=== PATIENT | female | born 1960 | race Caucasian/White ===

== ENCOUNTER → 2020-05-14 10:22 | Outpatient (CLI) | payer BC, SELFPAY ==
--- NOTE | ~2020-05-14 | MM_ITS ---
EXAMINATION: MM screening [facility] BI w [facility] HISTORY: Screening mammogram TECHNIQUE: Craniocaudal and mediolateral oblique 3-D tomosynthesis images were obtained and synthetic 2-D images were generated. CAD analysis was submitted and interpreted. COMPARISON: 12/13/2018, 01/10/2017, 11/25/2015 BREAST PARENCHYMAL COMPOSITION: There are scattered areas of fibroglandular density. FINDINGS: There is no evidence of suspicious mass, calcification, or architectural distortion to sugg est malignancy in either breast. There has been no suspicious interval change. IMPRESSION: 1. No mammographic evidence of malignancy. 2. Recommend routine screening mammography in one year. BI-RADS Category 1: Negative Reviewed, dictated and finalized at location A. [place]
== END ==
PROVIDERS: PCP Internal Medicine; Visit Provider Internal Medicine
DX: Z12.31 Encounter for screening mammogram for malignant neoplasm of breast (principal)
CPT/HCPCS: 77063; 77067

== ENCOUNTER → 2020-10-27 10:01 | Outpatient (CLI) | payer BC, SELFPAY ==
--- NOTE | ~2020-10-27 | XR_ITS ---
EXAMINATION: XR cervical spine min 6V EXAM DATE: 10/27/2020 10:27 INDICATION: Cervicalgia. Neck pain, no known recent injury, surgery or fracture. TECHNIQUE: Cervical spine frontal, lateral, lateral swimmers, and open-mouth odontoid projections. There is no prior study for comparison. FINDINGS: On the neutral projection there is 4 to 5 mm anterolisthesis C4 on C5, with kyphosis cente red at this level. No evidence of perched or jumped facet joints. Moderate loss of this disc height a nd at the 2 levels below. Amount of anterolisthesis appears unchanged between the lateral neutral and flexion projections, but decreases to about 3-4 mm on the extension projection. There is moderate lo wer cervical uncovertebral joint arthropathy. Prevertebral soft tissue and pre-dens space are within normal limits. The odontoid process is intact. The lateral masses of C1 line up with C2. Overall mil d to moderate cervical facet arthropathy. IMPRESSION: 1. Grade 2 anterolisthesis C4 on C5 with mild motion between lateral projections and acute kyphosis centered at this disc space. 2. Spondylosis as above. Reviewed, dictated and finalized at location B. IMPRESSION: 1. Grade 2 anterolisthesis C4 on C5 with mild motion between lateral projectio ns and acute kyphosis centered at this disc space. 2. Spondylosis as above.
== END ==
PROVIDERS: PCP Internal Medicine
DX: M47.892 Other spondylosis, cervical region (principal)
CPT/HCPCS: 72052

== ENCOUNTER 2020-12-03 11:06 | Outpatient (CLI) | payer BC, SELFPAY ==
--- NOTE | 2020-12-03 | ECG_ITS ---
Measurements Intervals [place] Rate: 68 P: 53 NH: 170 QRS: -1 QRSD: 84 T: 17 QT: 382 QTc: 407 Interpretive Statements SINUS RHYTHM DELAYED PRECORDIAL R/S TRANSITION LOW QRS VOLTAGE IN PRECORDIAL LEADS BASELINE ARTIFACT- II, III, AVF, V5-V6 BORDERLINE ECG Electronically Signed On 12-03-2020 11:35:21 CDT by Chace Chapman D.O.
== END 2020-12-03 11:07 | disposition home or self-care (01) ==
LOC: ANHCARD 11:09
PROVIDERS: PCP Internal Medicine; Visit Provider Neurological Surgery
DX: M54.2 Cervicalgia (principal); M40.202 Unspecified kyphosis, cervical region; M12.88 Other specific arthropathies, not elsewhere classified, other specified site; R94.31 Abnormal electrocardiogram [ECG] [EKG]
CPT/HCPCS: 93005

== ENCOUNTER → 2020-12-03 12:35 | Outpatient (CLI) | payer BC, SELFPAY ==
--- NOTE | ~2020-12-03 | XR_ITS ---
XR chest 2V DATE: 12/03/2020 13:16 INDICATION: Arthropathy TECHNIQUE: PA and lateral views COMPARISON: None FINDINGS: Normal heart size. No hilar or mediastinal enlargement. The lungs appear mildly hyperinflat ed. No pulmonary infiltrate or consolidation, pleural effusion or pulmonary vascular congestion or pn eumothorax. Diffuse osteopenia. IMPRESSION: Mild hyperinflation; no active cardiopulmonary disease Diffuse osteopenia Reviewed, dictated and finalized at location A.
== END ==
PROVIDERS: PCP Internal Medicine; Visit Provider Neurological Surgery
DX: M54.2 Cervicalgia (principal); M40.202 Unspecified kyphosis, cervical region; M12.88 Other specific arthropathies, not elsewhere classified, other specified site; S13.100A Subluxation of unspecified cervical vertebrae, initial encounter; X58.XXXA Exposure to other specified factors, initial encounter; M85.88 Other specified disorders of bone density and structure, other site; R91.8 Other nonspecific abnormal finding of lung field
CPT/HCPCS: 71046

== ENCOUNTER → 2021-02-08 08:45 | Outpatient (CLI) | payer BC, SELFPAY ==
--- NOTE | ~2021-02-08 | XR_ITS ---
EXAMINATION:XR cervical spine 4-5V DATE: 02/08/2021 09:12 INDICATION: Neck pain TECHNIQUE: AP, lateral, lateral swimmers and odontoid views of the cervical spine are provided. COMPARISON: 10/27/2020 FINDINGS: There are changes of interval anterior fusion at C4-5. There are 4 mm of anterolisthesis of C4 on C5. No laxity is present with flexion or extension. Vertebral body alignment is otherwise main tained. The odontoid is intact. No fracture is identified. There is severe loss of intervertebral dis c space height at C5-6 and C6-7. Prevertebral soft tissues are normal. There is moderate facet and un covertebral joint osteoarthritis. IMPRESSION: 1. Changes of interval anterior fusion at C4-5 with otherwise unchanged moderate spondylosis. Reviewed, dictated and finalized at location A. IMPRESSION: 1. Changes of interval anterior fusion at C4-5 with otherwise unchanged moderat e spondylosis.
== END ==
PROVIDERS: PCP Internal Medicine; Visit Provider Neurological Surgery
DX: M12.88 Other specific arthropathies, not elsewhere classified, other specified site (principal); M40.202 Unspecified kyphosis, cervical region; S13.100A Subluxation of unspecified cervical vertebrae, initial encounter; Z98.1 Arthrodesis status
CPT/HCPCS: 72050

== ENCOUNTER → 2021-03-31 10:02 | Outpatient (CLI) | payer BC, SELFPAY ==
--- NOTE | ~2021-03-31 | XR_ITS ---
EXAMINATION:XR cervical spine 4-5V DATE: 03/31/2021 10:18 INDICATION: Neck pain TECHNIQUE: AP, lateral in flexion, neutral, and extension, lateral swimmers and odontoid views of the cervical spine are provided. COMPARISON: 02/08/2021 FINDINGS: There are changes of anterior fusion at C4-5. There are 4 mm of unchanged anterolisthesis o f C4 on C5. No laxity is present with flexion or extension The odontoid is intact. No fracture is nate ntified. The vertebral body heights are maintained. There is severe loss of intervertebral disc space height at C5-6 and C6-7. Moderate facet and uncovertebral joint osteoarthritis is present. Preverteb ral soft tissues are normal. IMPRESSION: 1. Moderate cervical spondylosis without acute findings or significant interval change. Reviewed, dictated and finalized at location B.
== END ==
PROVIDERS: PCP Internal Medicine; Visit Provider Neurological Surgery
DX: M47.812 Spondylosis without myelopathy or radiculopathy, cervical region (principal); Z98.1 Arthrodesis status
CPT/HCPCS: 72050

== ENCOUNTER → 2021-07-28 12:00 | Outpatient (CLI) | payer OTHER, SELFPAY ==
--- NOTE | ~2021-07-28 | MM_ITS ---
EXAMINATION: MM screening [facility] BI w [facility] HISTORY: Screening mammogram TECHNIQUE: Craniocaudal and mediolateral oblique 3-D tomosynthesis images were obtained and synthetic 2-D images were generated. CAD analysis was submitted and interpreted. COMPARISON: 05/14/2020, 12/13/2018, 01/10/2017 BREAST PARENCHYMAL COMPOSITION: There are scattered areas of fibroglandular density. FINDINGS: There is no evidence of suspicious mass, calcification, or architectural distortion to sugg est malignancy in either breast. There has been no suspicious interval change. IMPRESSION: 1. No mammographic evidence of malignancy. 2. Recommend routine screening mammography in one year. BI-RADS Category 1: Negative Reviewed, dictated and finalized at location A. E MAN
--- NOTE | ~2021-07-28 | DEXA_ITS ---
Bone Density Report Name: LINENTTE MCLEAN Age: 60 Sex: Female Ethnicity: White Date of : 1960 Indication: postmenopausal; screening for osteoporosis; asthma or emphysema; hysterectomy; Referring Provider: ABRAHAM, XIN Clifford Study: Bone densitometry was performed. Exam Date: July 28, 2021 Accession number: [id number] Bone Density: Region BMD T-score Z-score Classification AP Spine (L1-L4) 0.803 -2.2 -0.8 Osteopenia Femoral Neck (Left) 0.621 -2.1 -0.7 Osteopenia Total Hip (Left) 0.766 -1.4 -0.5 Osteopenia Femoral Neck (Right) 0.637 -1.9 -0.6 Osteopenia Total Hip (Right) 0.770 -1.4 -0.4 Osteopenia Total Hip Mean 0.768 -1.4 -0.5 Osteopenia World Health Organization criteria for BMD impression classify patients as: Normal (T-score at or above -1.0), Osteopenia (T-score between -1.0 and -2.5), or Osteoporosis (T-score at or below -2.5). 10-year Fracture Risk(1): Major Osteoporotic Fracture 9.6% Hip Fracture 1.2% Reported Risk Factors: [place] (), Neck BMD=0.621, BMI=28.7 (1) FRAX(R) Version 3.08. Fracture probability calculated for an untreated patient. Fracture probability may be lower if the patient has received treatment. Clinical Information Provided by Patient: Has used the following medications: Vitamin D, Calcium, MTV Has the following medical conditions: Asthma or Emphysema, Hysterectomy Patient maximum height was 60.0 Menopause Age: 54 No regular weight bearing exercise Drinks caffeinated beverages Onset of menses at age 12 Number of children 2 Impression: The patient has low bone mass, based on the Total Spine T-score. The patient has an estimated ten-year risk of hip fracture of 1.2% and an estimated ten-year risk of major fracture of 9.6%, based on the WHO FRAX algorithm. Discussion: BONE DENSITY IS LOW AT ONE OR MORE SKELETAL SITES. This patient's lowest T-score is low at one or more skeletal sites. It meets the World Health Organization's (WHO) criteria for ?low bone mass? (T-score between -1.0 and -2.5). The patient's 10-year risk of fracture as calculated by FRAX is less than the threshold where pharmacological therapy is recommended by the National Osteoporosis Foundation (NOF). However, all treatment decisions require clinical judgment and consideration of individual patient factors, including patient preferences, comorbidities, previous drug use, risk factors not captured in the FRAX model (e.g., frailty, falls, vitamin D deficiency, increased bone turnover, interval significant decline in bone density) and possible under or overestimation of fracture risk by FRAX. The patient should follow a healthful lifestyle (good nutrition with adequate calcium and vitamin D, and appropriate weight-bearing exercise). Follow-Up: Consider repeating this study in 2 to 3 years to
== END ==
PROVIDERS: PCP Internal Medicine; Visit Provider Internal Medicine
DX: Z12.31 Encounter for screening mammogram for malignant neoplasm of breast (principal); Z78.0 Asymptomatic menopausal state; M85.88 Other specified disorders of bone density and structure, other site; M85.852 Other specified disorders of bone density and structure, left thigh; M85.851 Other specified disorders of bone density and structure, right thigh
CPT/HCPCS: 77063; 77067; 77080

== ENCOUNTER → 2021-07-28 12:01 | Outpatient (CLI) | payer OTHER, SELFPAY ==
--- NOTE | ~2021-07-28 | XR_ITS ---
XR cervical spine 4-5V DATE: 07/28/2021 13:14 INDICATION: Neck pain TECHNIQUE: AP, lateral views. Flexion and extension lateral views. COMPARISON: 03/31/2021 cervical spine FINDINGS: Again noted is postoperative change from anterior and interbody spinal fusion at C4-5. IMPRESSION: Reviewed, dictated and finalized at location A. 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
== END ==
PROVIDERS: PCP Internal Medicine; Visit Provider Neurological Surgery
DX: S13.100A Subluxation of unspecified cervical vertebrae, initial encounter (principal); X58.XXXA Exposure to other specified factors, initial encounter; M50.221 Other cervical disc displacement at C4-C5 level; M40.202 Unspecified kyphosis, cervical region
CPT/HCPCS: 72050

== ENCOUNTER → 2022-11-21 07:20 | Outpatient (CLI) | payer OTHER, SELFPAY ==
--- NOTE | ~2022-11-21 | MM_ITS ---
EXAMINATION: MM screening [facility] BI w [facility] HISTORY: Screening mammogram TECHNIQUE: Craniocaudal and mediolateral oblique 3-D tomosynthesis images were obtained and synthetic 2-D images were generated. CAD analysis was submitted and interpreted. COMPARISON: 07/28/2021, 05/14/2020, 12/13/2018 bilateral screening mammogram examinations BREAST PARENCHYMAL COMPOSITION: There are scattered areas of fibroglandular density. FINDINGS: There is no evidence of suspicious mass, calcification, or architectural distortion to sugg est malignancy in either breast. There has been no suspicious interval change. IMPRESSION: 1. No mammographic evidence of malignancy. 2. Recommend routine screening mammography in one year. BI-RADS Category 1: Negative Reviewed, dictated and finalized at location A.
== END ==
PROVIDERS: PCP Internal Medicine; Visit Provider Internal Medicine
DX: Z12.31 Encounter for screening mammogram for malignant neoplasm of breast (principal)
CPT/HCPCS: 77063; 77067